=== PATIENT | female | born 1955 | race Caucasian/White ===

== ENCOUNTER 2017-03-26 06:56 | Day surgery (SDC) | payer OTHER ==
[2017-03-16 13:58] VITALS: BMI 36.8
[2017-03-26] MEDS ORDERED: BUPIVACAINE HCL/PF 2.5 MG/ML - 30 ML VIAL IJ ONE (08:37)
[2017-03-26] MEDS ORDERED: LIDOCAINE HCL 1%, 10 MG/ML (20ML VIAL) ONE (08:38)
[2017-03-26] MEDS ORDERED: BUPIVACAINE HCL/PF 0.25% (2.5MG/ML) 10 ML VIAL IJ ONE (08:57)
[2017-03-26] MEDS ORDERED: LIDOCAINE HCL 1%, 10 MG/ML (50 mL VIAL) IJ ONE (08:57)
[2017-03-26 10:06] VITALS: BP 121/75; PULSE 72; TEMP 98
--- NOTE | 2017-03-28 21:54 | OP ---
DATE OF OPERATION: 03/26/2017 LOCATION: [facility]. PREOPERATIVE DIAGNOSES: 1. Left wrist carpal tunnel syndrome. 2. Left wrist de Quervain's tenosynovitis. POSTOPERATIVE DIAGNOSES: 1. Left wrist carpal tunnel syndrome. 2. Left wrist de Quervain's tenosynovitis. PROCEDURE: 1. Left carpal tunnel release ([id number]). 2. Left wrist de Quervain's release. FINDINGS: 1. Thickened transverse carpal ligament with impingement on median nerve/carpal tunnel syndrome. 2. Thickened scar tissue, de Quervain's tenosynovitis with impingement upon the de Quervain's tendons. PROCEDURE: Under sterile conditions, the upper extremity was prepped and draped in a sterile fashion. Incision was made along the longitudinal portion of the carpal tunnel. A longitudinal incision was made along the proximal portion of the palm, following the palm crease. This was taken down to the transcarpal ligament, which was released initially with scalpel and then extended proximally and distally using blunt tenotomy scissors. The median nerve was identified and completely released from impingement by the transcarpal ligament. The wound was then irrigated with copious amounts of irrigation. Skin was closed with 5-0 nylon in single interrupted sutures. ADDENDUM: After release of the carpal tunnel, a 2-cm incision was made 2 cm proximal to the radial styloid. The de Quervain's sheath was identified and careful attention was made to avoid damage to the neurovascular structures. A longitudinal incision was made in the sheath and extended proximally and distally using blunt tenotomy scissors. A curved hemostat was placed around the tendons, and lesser sheaths were released on the inside. The wound was irrigated with copious amounts of irrigation, closed with 4-0 nylon in single interrupted sutures. ALEXANDR PIZANO M.D. [id number]
== END 2017-03-26 10:10 | disposition home or self-care (01) ==
LOC: FASU 06:56
PROVIDERS: ATTEND Orthopaedic Surgery
PROC: 01N50ZZ Release Median Nerve, Open Approach (ICD-10-PCS; principal; 2017-03-26 08:30)
DX: G56.02 Carpal tunnel syndrome, left upper limb (principal); M65.4 Radial styloid tenosynovitis [de Quervain]